=== PATIENT | male | born 1950 | race Caucasian/White ===

== ENCOUNTER 2019-05-23 08:02 | Day surgery (SDC) | payer MEDICARE, OTHER ==
[~2019-05-23 08:02] MED LIST: Sodium Chloride 0.9% 10 ML Syringe FLUSH PRN
[2019-05-23] MEDS: Lactated Ringers 1,000 ML IV SCH (08:24)
[2019-05-23] MEDS ORDERED: fentaNYL 100 MCG/2 ML SDV ONE (10:48)
[2019-05-23] MEDS ORDERED: Propofol 200 MG/20 ML SDV ONE (11:15)
[2019-05-23 12:12] VITALS: BP 137/72
--- NOTE | 2019-05-24 08:30 | OR ---
PREOPERATIVE DIAGNOSIS: Esophageal stenosis. POSTOPERATIVE DIAGNOSIS: Esophageal stenosis. PROCEDURE PROPOSED: Endoscopic balloon dilation. PROCEDURE DONE: Endoscopic balloon dilation. INDICATION: This is a 68-year-old gentleman who was discovered on EGD to have a stenosis that would benefit with dilation. TECHNIQUE: The patient was already sedated. The endoscope was in the esophagus. The GE junction measured at 42 cm. I then brought in an 18 to 20 mm dilating balloon, placed it across the GE junction approximately 5 cm on each side. The balloon was then dilated to 18 mm followed by 19 and then ending up at 20 mm of dilation. There was some slight bleeding and fracturing of the stenosis, but no evidence of any worrisome injury and the procedure was terminated as the balloon was removed as well as the endoscope. He was then taken to recovery in good condition. FINAL IMPRESSION: Esophageal stenosis dilated to 20 mm. PLAN: Omeprazole as previously discussed on the EGD. SCM: 05/23/2019 11:38:04 MODL: 05/23/2019 17:29:38 /[id number]
--- NOTE | 2019-05-24 08:33 | OR ---
PREOPERATIVE DIAGNOSIS: Dysphagia. POSTOPERATIVE DIAGNOSES: Esophageal stenosis, duodenitis. PROCEDURE PROPOSED: Upper gastrointestinal panendoscopy with biopsy. PROCEDURE DONE: Upper gastrointestinal panendoscopy with biopsy. INDICATION: This is a 68-year-old gentleman bothered with dysphagia for the past year, mainly with meat and it is felt that he needs to be endoscoped to rule out significant pathology. TECHNIQUE: The patient brought to the endoscopy suite, placed in left lateral decubitus position. He was sedated per CURTAIN CUTTER with propofol. The flexible video gastroscope was then passed transorally and under visualization advanced well into the duodenum. The proximal duodenum did reveal some duodenitis with erythematous mucosa and then the duodenum appeared normal again after about the 2nd portion. The 3rd and 4th portion appeared quite normal and healthy. Biopsies were taken of the 1st and 2nd portion of the duodenum. The pylorus and antrum appeared normal as well as the body of the stomach, but an antral biopsy was taken to rule out H. pylori. The GE junction did not reveal any hiatal hernia, but he did have some tightness at the GE junction which I felt would benefit with dilation. Remainder of the esophagus appeared normal. FINAL IMPRESSION: 1. Duodenitis, biopsies pending. 2. Esophageal stenosis, to be dilated. PLAN: Omeprazole 20 mg daily for 6 weeks and to avoid caffeine, alcohol, ibuprofen, nicotine, and we will proceed with dilation. SCM: 05/23/2019 11:38:04 MODL: 05/23/2019 17:27:51 /[id number]
== END 2019-05-23 12:55 | disposition home or self-care (01) ==
LOC: VM.SDS 08:02
PROVIDERS: ATTEND Surgery
DX: K22.2 Esophageal obstruction (principal); K29.80 Duodenitis without bleeding; K29.50 Unspecified chronic gastritis without bleeding; K22.70 Barrett's esophagus without dysplasia; I12.9 Hypertensive chronic kidney disease with stage 1 through stage 4 chronic kidney disease, or unspecified chronic kidney disease; N18.3 Chronic kidney disease, stage 3 (moderate); E78.00 Pure hypercholesterolemia, unspecified; M19.90 Unspecified osteoarthritis, unspecified site; Z87.11 Personal history of peptic ulcer disease; Z79.899 Other long term (current) drug therapy
CPT/HCPCS: 00731; C1726; J2704; J3010; J7120

== ENCOUNTER 2021-05-09 09:22 | Day surgery (SDC) | payer MEDICARE, OTHER ==
[~2021-05-09 09:22] MED LIST changes: +Lactated Ringers 1,000 ML IV SCH; +Propofol 200 MG/20 ML SDV ONE; -Sodium Chloride 0.9% 10 ML Syringe FLUSH PRN; +fentaNYL 100 MCG/2 ML SDV ONE
[2021-05-09 11:24] VITALS: BP 136/68; PULSE 62
--- NOTE | 2021-05-09 13:48 | OR ---
DATE OF SURGERY: 05/09/2021. REFERRING PROVIDER: NIURKA Tate PRE-OPERATIVE DIAGNOSES: 1. Screening colonoscopy. Last colonoscopy was about 10 years ago in [place]. 2. History of hematochezia about a month ago. POST-OPERATIVE DIAGNOSES: 1. Total of 4 polyps removed today. a. 4 mm cecal polyp, removed using cold snare. b. 3 mm cecal polyp, removed using cold forceps. c. 8 mm pedunculated polyp at 85 cm, removed using hot snare. d. 5 mm polyp at 70 cm, removed using hot snare on the way in. 2. Normal-appearing distal ileum. 3. Minimal sigmoid diverticulosis. PROCEDURE: Colonoscopy with polypectomy x4 (2 using hot snare, 1 using cold snare, and 1 using cold forceps). SURGEON: Tanner Hess M.D. ANESTHESIA: Monitored anesthesia care. BOWEL PREP: GoodManohar Pearce, who goes by [facility], is a 70-year-old male who was brought to the endoscopy suite after discussing risks and benefits of the procedure. Informed consent was obtained for conscious sedation and colonoscopy with or without biopsy and/or polypectomy. We also discussed possibility of missed lesions. Pre-procedure exam was unremarkable. IV, oxygen, and monitors were placed. The patient was placed in the left lateral decubitus position. Sedation was administered and a digital rectal exam was performed and unremarkable. Colonoscope was passed into the rectum and slowly advanced all the way to the cecum. Cecum was viewed and photographed. Ileocecal valve was intubated and distal ileum was normal in appearance. Within the cecum, there was a 4 mm cecal polyp removed using cold snare and a separate 3 mm polyp removed using cold forceps. The colonoscope was slowly withdrawn and the mucosa was closed observed in a direct circumferential manner. The ascending colon was remarkable for 8 mm pedunculated polyp at 85 cm, removed using hot snare x2 passes. The transverse colon was remarkable for a 5 mm polyp at 70 cm, removed using hot snare on the way in. The descending colon was unremarkable. The sigmoid colon revealed some minimal diverticulosis. Retroflexion was performed and rectal mucosa was unremarkable. Scope was removed. The patient tolerated the procedure well. The patient was monitored until that baseline status. Discharge instructions were reviewed and the patient was discharged in good condition. COMPLICATIONS: None. TOTAL TIME: 23 minutes. ESTIMATED BLOOD LOSS: About 1 mL. RECOMMENDATIONS/FOLLOW-UP: We will await results of path report to determine ideal followup interval. The patient states he does not take aspirin on a regular basis, but he will at least hold for 3 days to limit any chance of bleeding from polypectomy sites. I would like to kindly thank Rohit Chandler for this referral. DMB: 05/09/2021 11:33:27 MODL: 05/09/2021 13:08:02 /[id number]
== END 2021-05-09 11:25 | disposition home or self-care (01) ==
LOC: VM.SDS 09:22
PROVIDERS: ATTEND Family Medicine
DX: K52.9 Noninfective gastroenteritis and colitis, unspecified (principal); K63.5 Polyp of colon; K57.30 Diverticulosis of large intestine without perforation or abscess without bleeding; E66.9 Obesity, unspecified; N18.30 Chronic kidney disease, stage 3 unspecified; I12.9 Hypertensive chronic kidney disease with stage 1 through stage 4 chronic kidney disease, or unspecified chronic kidney disease; E78.5 Hyperlipidemia, unspecified; E79.0 Hyperuricemia without signs of inflammatory arthritis and tophaceous disease; N52.9 Male erectile dysfunction, unspecified; Z79.899 Other long term (current) drug therapy; Z79.82 Long term (current) use of aspirin; Z98.890 Other specified postprocedural states; Z68.35 Body mass index [BMI] 35.0-35.9, adult
CPT/HCPCS: 00811; 88305; J2704; J3010; J7120